=== PATIENT | male | born 1960 ===

== ENCOUNTER 2018-11-09 00:51 | Inpatient (IN) | payer SELFPAY ==
[~2018-11-09 00:51] MED LIST: ASPIRIN ONE; HEPARIN 10,000 UNITS/10 ML ONE; HEPARIN/NS 5000 UNIT/500ML(CATH LAB) IR ONE; LOPRESSOR IV ONE; PLAVIX ONE
[2018-11-09] MEDS ORDERED: SOLU-Medrol IV ONE (01:02)
[2018-11-09] MEDS ORDERED: DUONEB *Not for PRN Use IH ONE (01:02)
--- NOTE | 2018-11-09 01:04 | Emergency Department Report ---
HPI - General Time Seen by Provider: 11/09/18 01:01 - [facility] HPI: 58-year-old male presents to the emergency department via EMS from home with complaint of some acute shortness of breath that started about 30 minutes prior to arrival. Originally the call was for some throat pain and the shortness of breath but he started developing some wheezing, crackles and coughing fits and round. He is a tobacco smoker and has had about 2 cigarettes today. He has a history of diabetes. No recent travel or sick contacts at home. He did not take anything for her symptoms prior to arrival nor receive anything in route with EMS. He denies any fever, lower extremity edema, chest pain, nausea, vomiting or diaphoresis. ED Review of Systems ROS: Stated complaint: ASHISH Other details as noted in HPI Comment: All other systems reviewed and negative Constitutional: denies: chills, fever Eyes: denies: eye pain, vision change ENT: denies: ear pain, throat pain Respiratory: cough, shortness of breath, wheezing Cardiovascular: denies: chest pain, edema Gastrointestinal: denies: abdominal pain, vomiting Genitourinary: denies: dysuria, frequency Musculoskeletal: denies: back pain, arthralgia Skin: denies: rash, lesions Neurological: denies: headache, weakness Physical Exam - Physical Exam Physical Exam: GENERAL: Patient is ill-appearing. HEENT: Normocephalic. Atraumatic. Patient has moist mucous membranes. EYES: Extraocular motions are intact. Pupils are equal and reactive to light bilaterally. NECK: Supple. Trachea is midline. CHEST/LUNGS: Diffuse rales. Tachypnea with accessory muscle use and conversational dyspnea. There is respiratory distress noted. HEART/CARDIOVASCULAR: Regular. There is moderate tachycardia. There is no obvious murmur. ABDOMEN: Abdomen is soft, nontender. Patient has normal bowel sounds. There is no abdominal distention. SKIN: Skin is warm and dry. NEURO: The patient is awake, alert, and oriented. The patient is cooperative. The patient has no focal neurologic deficits. The patient has normal speech. MUSCULOSKELETAL: There is no tenderness or deformity. There is no evidence of acute injury. ED Course - Consultations Consultation #1: As soon as the EKG was completed, a code STEMI was called and Dr. Yousif was contacted as the interventional radiologist on-call. He listened to the case presentation, was able to review the EKG, and agrees with the assessment and will proceed with a cardiac catheterization. 11/09/18 04:19 ED Medical Decision Making - Lab Data Result diagrams: 11/09/18 01:24 11/09/18 01:24 - EKG Data -: EKG Interpreted by Me EKG shows normal: sinus rhythm, axis, intervals, QRS complexes, ST-T waves (ST elevations to the inferior leads, ST depression to 1 and aVL) Rate: tachycardia (125 bpm) - EKG Data When compared to previous EKG there are: previous EKG unavailable Interpretation: acute [place], other (sinus tachycardia. Inferior ST elevation [place]) - Radiology Data Radiology results: image reviewed interpreted by me: Chest x-ray shows diffuse pulmonary edema. No pneumothorax or obvious pneumonia. - Medical Decision Making Patient presents to the emergency department with acute shortness of breath and some pain in the throat where he felt like there was something lodged and he could not clear it. Patient appeared to be in some respiratory distress with audible rales. He was placed on a BiPAP with some improvement. At first it was difficult to get an appropriate EKG but there were some signs of inferior ST elevation. Eventually we're able to get an appropriate EKG that did confirm ST elevation in the inferior leads with some lateral depressions concerning for an inferior ST elevation [place]. A code STEMI was called and the patient went to the label paster. He was given aspirin, Plavix and heparin. Chest x-ray appears consistent with pulmonary edema. The patient will be admitted to the CCU and w as accepted for admission by the hospitalist, Dr. Morgan. - Differential Diagnosis [place], CHF, PE, pneumonia Critical Care Time: Yes Critical care time in (mins) excluding proc time.: 35 Critical care attestation.: If time is entered above; I have spent that time in minutes in the direct care of this critically ill patient, excluding procedure time. Critical care time was spent on this patient during his initial evaluation, ordering and interpretation of labs and imaging, discussion with the airplane coverer, ordering of appropriate medications. Critical Care Time: 35 minutes ED Disposition Clinical Impression: Acute ST elevation myocardial infarction (STEMI) of inferior wall, Acute pulmonary edema, Accelerated hypertension Disposition: OP ADMIT IP TO THIS HOSP Is pt being admited?: Yes Condition: Serious Time of Disposition: 04:24
[2018-11-09] MEDS ORDERED: ATIVAN ONE ×2 (01:15→01:16)
[2018-11-09] MEDS ORDERED: LOPRESSOR IV ONE (01:22)
[2018-11-09] MEDS ORDERED: PLAVIX PO ONE (01:23)
[2018-11-09] MEDS ORDERED: BABY ASPIRIN PO ONE (01:24)
[2018-11-09] MEDS ORDERED: HEPARIN IV ONE (01:24)
[2018-11-09] MEDS ORDERED: NACL 0.9% 1000 ML 1,000 ML IV ONE (01:24)
[2018-11-09] MEDS ORDERED: MORPHINE ONE (01:30)
[2018-11-09] MEDS: HEPARIN/ 0.45% NACL-25,000 UNIT/500 ML 25,000 UNIT/500 ML BAG IV SCH ×2 (01:39→02:45)
[2018-11-09 01:43] LABS: Hematocrit 50.8 % (35.5-45.6); Hemoglobin 16.9 gm/dl (11.8-15.2); Mean Corpuscular HGB Conc 33 % (32-34); Mean Corpuscular Volume 85 fl (84-94); Platelet Count 341 K/mm3 (140-440); Red Blood Count 6.01 M/mm3 (3.65-5.03); Red Cell Distribution Width 14.2 % (13.2-15.2)
--- NOTE | 2018-11-09 01:57 | XRay Report ---
PROCEDURE: XR CHEST 1V AP TECHNIQUE: A portable supine view the chest was obtained. HISTORY: Dyspnea COMPARISONS: None FINDINGS: The lungs are hyperinflated with diffuse reticulonodular densities throughout both lungs. Underlying congestion cannot be excluded. Pleural fluid is not seen. The heart size is normal. The skeletal stru ctures reveal generalized osteopenia with multiple well healed right-sided rib fractures. IMPRESSION: Hyperinflation with diffuse reticulonodular interstitial changes throughout both lungs which are of u ncertain etiology. Underlying congestion cannot be excluded. This document is electronically signed by Román Duke MD., November 09 2018 01:54:43 AM ET
[2018-11-09] MEDS ORDERED: HEPARIN 10,000 UNITS/10 ML IV ONE (02:00)
[2018-11-09 02:01] LABS: Alanine Aminotransferase 12 units/L (7-56); BUN/Creatinine Ratio 15; Blood Urea Nitrogen 12 mg/dL (9-20); Calcium 8.6 mg/dL (8.4-10.2); Hemolysis Index 16
[2018-11-09] MEDS ORDERED: HEPARIN/NS 5000 UNIT/500ML(CATH LAB) 1,000 ML IR ONE ×2 (02:05→02:20)
[2018-11-09] MEDS ORDERED: HEPARIN 10,000 UNITS/10 ML ONE (02:06)
[2018-11-09] MEDS ORDERED: SUBLIMAZE ONE (02:06)
[2018-11-09] MEDS ORDERED: VERSED ONE (02:06)
[2018-11-09 02:10] LABS: INR 0.89 (0.87-1.13)
[2018-11-09 02:11] LABS: Partial Thromboplastin Time 23.7 Sec. (24.2-36.6)
[2018-11-09] MEDS ORDERED: XYLOCAINE 2% INFILTRATI ONE (02:11)
[2018-11-09] MEDS ORDERED: NACL 0.9% 500 ML 500 ML ONE (02:11)
[2018-11-09] MEDS ORDERED: NITROGLYCERIN SYRINGE 3 ML ONE (02:17)
[2018-11-09] MEDS ORDERED: NACL 0.9% 1000 ML 1,000 ML ONE (02:43)
--- NOTE | 2018-11-09 03:18 | Consultation ---
History of Present Illness Consult date: 11/09/18 Consult reason: chest pain, shortness of breath History of present illness: The patient is a 58-year-old man who presented to the hospital with chest pain and shortness of breath. EKG showed an acute inferior ST elevation myocardial infarction which prompted emergency cardiac catheterization protocol. We found severe diffuse three-vessel disease. The LAD contained a long stent in its proximal to mid segment, with a greater than 90% in-stent restenosis. The circumflex was a dominant vessel, which also contained a stent in its midsegment, with an operative 70% in-stent restenosis. The infarct lesion was complete occlusion of the distal circumflex leading to a small diffusely diseased left posterior descending branch. The right coronary artery was a nondominant vessel but was also chronically occluded at its ostium. Left ventricular angiography showed a left ventricular ejection fraction less than 15%, with aneurysmal dilatation and akinesis of the inferior wall. Based on the patient's anatomy and the severity of the left ventricular dysfunction, he is determined to have only minimal benefit from primary intervention to the distal circumflex at extremely high risk. Recommended intra-aortic balloon pump support, as a bridge to eventual multivessel revascularization either surgical or percutaneous with surgical backup. In addition, the patient's chest x-ray shows acute pulmonary edema. He'll be ad mitted to the CCU, for aggressive management of heart failure and coronary artery disease pending revascularization. Medium to fdc prognosis is very poor. Past History Past Medical History: CAD, heart failure Medications and Allergies Allergies Allergy/AdvReac Type Severity Reaction Status Date / Time No Known Allergies Allergy Unverified 11/09/18 00:59 Active Meds: Active Medications Aspirin (Halfprin Ec) 81 mg PO QDAY MARIO Atorvastatin Calcium (Lipitor) 40 mg PO QHS MARIO Furosemide (Lasix) 40 mg IV 0600,1800 MARIO Sodium Chloride (Nacl 0.9% 1000 Ml) 1,000 mls @ 42 mls/hr IV ONCE ONE Stop: 11/10/18 01:12 Heparin Sodium/Sodium Chloride (Heparin/ 0.45% Nacl-25,000 Unit/500 Ml) 25,000 unit in 500 mls @ 20 mls/hr IV TITRATE MARIO; Protocol Last Admin: 11/09/18 02:45 Dose: 15 units/kg/hr, 19.786 mls/hr Documented by: Milrinone Lactate/Dextrose (Milrinone-D5w 20 Mg/100 Ml) 20 mg in 100 mls @ 4.946 mls/hr IV TITR MARIO Stop: 11/12/18 03:59 Lisinopril (Zestril) 2.5 mg PO QDAY [facility] Metoprolol Tartrate (Lopressor) 25 mg PO Q8H [facility] Nitroglycerin (Nitro-Bid 2%) 0.5 inch TP QIDNTG [facility]; Protocol Pantoprazole Sodium (Protonix) 40 mg PO QDAY [facility] Potassium Chloride (K-Dur) 40 meq PO ONCE ONE Stop: 11/09/18 03:08 Spironolactone (Aldactone) 25 mg PO QDAY [facility] Review of Systems Cardiovascular: chest pain, orthopnea, shortness of breath, no palpitations, no rapid/irregular heart beat, no edema, no syncope, no lightheadedness Physical Examination Vital Signs Temp Pulse Resp BP Pulse Ox 97.6 F 134 H 26 H 195/111 99 11/09/18 01:00 11/09/18 01:00 11/09/18 01:00 11/09/18 01:00 11/09/18 01:00 General appearance: severe distress (on BiPAP) HEENT: Positive: PERRL Neck: Positive: neck supple Cardiac: Positive: Reg Rate and Rhythm Lungs: Positive: Decreased Breath Sounds, Rales Neuro: Positive: Grossly Intact Abdomen: Positive: Soft Male genitourinary: Positive: deferred Skin: Positive: Clear Extremities: Absent: edema Results 11/09/18 01:24 11/09/18 01:24 Cardiac Enzymes 11/09/18 Range/Units 01:24 AST 21 (5-40) units/L Coagulation 11/09/18 Range/Units 01:24 PT 12.6 (12.2-14.9) Sec. INR 0.89 (0.87-1.13) APTT 23.7 L (24.2-36.6) Sec. CBC 11/09/18 Range/Units 01:24 WBC 21.9 H (4.5-11.0) K/mm3 RBC 6.01 H (3.65-5.03) M/mm3 Hgb 16.9 H (11.8-15.2) gm/dl Hct 50.8 H (35.5-45.6) % Plt Count 341 (140-440) K/mm3 Lymph # Electric Truck Crane Operator Comprehensive Metabolic Panel 11/09/18 Range/Units 01:24 Sodium 140 (137-145) mmol/L Potassium 3.0 L (3.6-5.0) mmol/L Chloride 101.1 (98-107) mmol/L Carbon Dioxide 22 (22-30) mmol/L BUN 12 (9-20) mg/dL Creatinine 0.8 (0.8-1.5) mg/dL Glucose 255 H (75-100) mg/dL Calcium 8.6 (8.4-10.2) mg/dL AST 21 (5-40) units/L ALT 12 (7-56) units/L Alkaline Phosphatase 94 (35-129) units/L Total Protein 7.1 (6.3-8.2) g/dL Albumin 4.0 (3.9-5) g/dL EKG interpretations - Telemetry EKG Rhythm: Sinus Rhythm (with acute inferior wall ST elevation myocardial infarction.) Assessment and Plan - Patient Problems (1) Acute ST elevation myocardial infarction (STEMI) of inferior wall Current Visit: Yes Status: Acute Plan to address problem: The infarct lesion was complete occlusion of the distal circumflex leading to a small diffusely diseased left posterior descending branch. The right coronary artery was a nondominant vessel but was also chronically occluded at its ostium. Left ventricular angiography showed a left ventricular ejection fraction less than 15%, with aneurysmal dilatation and akinesis of the inferior wall. Based on the patient's anatomy and the severity of the left ventricular dysfunction, he is determined to have only minimal benefit from primary intervention to the distal circumflex at extremely high risk. Recommended intra-aortic balloon pump support, as a bridge to eventual multivessel revascularization either surgical or percutaneous with surgical backup. (2) Acute pulmonary edema Current Visit: Yes Status: Acute Plan to address problem: Aggressive management of heart failure as outlined.
[2018-11-09 03:54] LABS: Basophils % (Manual) 0 % (0.0-1.8); Total Cells Counted 100
[2018-11-09 03:55] LABS: Platelet Estimate Consistent w Auto; RBC Morphology Normal
[2018-11-09] MEDS ORDERED: LOPRESSOR PO SCH (04:00)
[2018-11-09] MEDS ORDERED: K-DUR PO ONE (04:07)
--- NOTE | 2018-11-09 04:34 | Cardiac Catherization Report ---
CARDIAC CATHETERIZATION REPORT REASON FOR PROCEDURE: The patient is a 58-year-old man, who presented to the hospital with chest pain and ECG consistent with acute inferior wall ST elevation myocardial infarction. Emergency cardiac catheterization protocol was activated, we were asked to perform an emergency left heart catheterization. PROCEDURE: The patient was prepped and draped in a sterile fashion under emergency protocol. Right femoral artery was entered using Seldinger technique followed by placement of a 6-Norwegian sheath. Selective left and right coronary angiography was performed using #4 right and left Ines catheters. The pigtail catheter was used for left ventricular angiography. The angiograms were reviewed. CORONARY ANGIOGRAPHY: The left main coronary artery was free of significant disease. The left anterior descending artery contained a long stented segment through its proximal to mid segment. There was a focal, 90-95% in-stent restenosis of the mid LAD at the distal end of the stented segment. Following that, there was diffuse mild to moderate atherosclerosis of the LAD and its diagonal branches. The distal LAD contained a very tortuous segment that appeared to be associated with another, focal 75-80% de bruce stenosis. The circumflex artery was a dominant system. The circumflex also contained a long stented segment in its mid AV groove portion. Within the stented segment, there was an eccentric 60-70% stenosis. A medium-sized anterior obtuse marginal branch that originated within the stented segment to be chronically totally occluded at its ostium. The circumflex artery was then occluded in its distal AV groove segment before the left posterior descending branch. There was faint collateralization of the distal segments of the circumflex system, which appeared to be of small caliber, diffusely diseased. The right coronary artery was non-dominant, but was also completely occluded at its ostium. The left ventricle was moderately dilated. There was severe left ventricular systolic dysfunction, left ventricular ejection fraction less than 15-20%. There was aneurysmal dilatation and akinesis of the basal inferior wall. Intraaortic balloon counterpulsation: After review of the angiograms, the patient was determined as high risk for primary angioplasty targeted at the distal circumflex acute occlusion. The patient will more likely benefit from multivessel revascularization, either done via surgical revascularization or multivessel percutaneous vascularization under surgical backup. Intraaortic balloon pump: An intraaortic balloon pump was inserted and a 1:1 counterpulsation was successfully established, as a bridge to eventual surgical revascularization. CONCLUSION: 1. Acute inferior ST elevation myocardial infarction. 2. Severe multivessel coronary artery disease. 3. Severe ischemic cardiomyopathy, ejection fraction less than 15%. 4. Successful placement of an intraaortic balloon pump. Coronary intervention to the distal circumflex infarct lesion is deferred, due to the patient's severe multivessel disease, high risk for coronary intervention, and eventual need for multivessel revascularization. JOB# [id number] CA/NTS
[2018-11-09 05:27] LABS: Hematocrit 48.1 % (35.5-45.6); Hemoglobin 16.2 gm/dl (11.8-15.2)
[2018-11-09 05:38] LABS: INR 0.99 (0.87-1.13)
[2018-11-09 05:44] LABS: Partial Thromboplastin Time 78.7 Sec. (24.2-36.6)
[2018-11-09] MEDS ORDERED: SODIUM CHLORIDE FLUSH SYRINGE 10 ML IV PRN (05:53)
[2018-11-09] MEDS ORDERED: TYLENOL PO PRN (05:53)
[2018-11-09] MEDS ORDERED: D50W (25GM) Syringe IV PRN (05:53)
[2018-11-09] MEDS ORDERED: ZOFRAN IV PRN (05:53)
--- NOTE | 2018-11-09 05:56 | History and Physical Report ---
History of Present Illness Date of examination: 11/09/18 Date of admission: 11/09/18 03:31 History of present illness: 58 year old man with a history of hypertension, diabetes, coronary artery disease comes emergency room with complaints of shortness of breath. In the emergency room he had STEMI, taken emergently to lift slab operator, which shows multivessel disease, patient is on a balloon pump Review of systems Constitutional: no weight loss, chills, fever Ears, eyes, nose, mouth and throat: no nasal congestion, no nasal discharge, no sinus pressure, no vision change, no red eye. Neck: No neck pain or rigidity. Cardiovascular: no palpitations, chest pain Respiratory: cough, +shortness of breath Gastrointestinal: no hematochezia, abdominal pain Genitourinary : no frequency , no hematuria Musculoskeletal: no joint swelling or muscle ache Integumentary: no rash, no pruritis Neurological: no parathesias, no focal weakness Endocrine: no cold or heat intolerance, no polyuria or polydipsia Hematologic/Lymphatic: no easy bruising, no easy bleeding, no gland swelling Allergic/Immunologic: no urticaria, no angioedema. PAST MEDICAL HISTORY: hypertension, diabetes, coronary artery disease PAST SURGICAL HISTORY: CABG SOCIAL HISTORY: Denies alcohol, smoked 2 cigarettes a day,no drugs FAMILY HISTORY: Hypertension Past History Past Medical History: CAD, heart failure Medications and Allergies Allergies Allergy/AdvReac Type Severity Reaction Status Date / Time No Known Allergies Allergy Unverified 11/09/18 00:59 Home Medications Medication Instructions Recorded Confirmed Last Taken Type Aspirin EC [Aspirin Enteric Coated 81 mg PO QDAY #30 tablet 11/09/18 Unknown Rx TAB] AtorvaSTATin [Lipitor] 40 mg PO QHS tablet 11/09/18 Unknown Rx Lisinopril [Zestril TAB] 2.5 mg PO QDAY tablet 11/09/18 Unknown Rx Metoprolol [Lopressor TAB] 25 mg PO Q8HR tablet 11/09/18 Unknown Rx Nitroglycerin [Nitro-Bid] 30 gm TD Q6H 7 Days oint...g. 11/09/18 Unknown Rx Pantoprazole [Protonix TAB] 40 mg PO QDAY #30 tablet 11/09/18 Unknown Rx Spironolactone [Aldactone] 25 mg PO QDAY #30 tablet 11/09/18 Unknown Rx Active Meds: Active Medications Acetaminophen (Tylenol) 650 mg PO Q4H PRN PRN Reason: Pain MILD(1-3)/Fever >100.5/VENEGAS Aspirin (Halfprin Ec) 81 mg PO QDAY [facility]IO Atorvastatin Calcium (Lipitor) 40 mg PO QHS [facility] Dextrose (D50w (25gm) Syringe) 50 ml IV PRN PRN PRN Reason: Hypoglycemia Furosemide (Lasix) 40 mg IV 0600,1800 [facility] Sodium Chloride (Nacl 0.9% 1000 Ml) 1,000 mls @ 42 mls/hr IV ONCE ONE Stop: 11/10/18 01:12 Heparin Sodium/Sodium Chloride (Heparin/ 0.45% Nacl-25,000 Unit/500 Ml) 25,000 unit in 500 mls @ 20 mls/hr IV TITRATE MARIO; Protocol Last Admin: 11/09/18 02:45 Dose: 15 units/kg/hr, 19.786 mls/hr Documented by: Milrinone Lactate/Dextrose (Milrinone-D5w 20 Mg/100 Ml) 20 mg in 100 mls @ 4.946 mls/hr IV TITR MARIO Stop: 11/12/18 03:59 Piperacillin Sod/Tazobactam Sod (Zosyn/Ns 3.375gm/50ml) 3.375 gm in 50 mls @ 100 mls/hr IV Q8HR [facility] Vancomycin HCl (Vancomycin/Ns 1 Gm/250 Ml) 1 gm in 250 mls @ 167.007 mls/hr IV ONCE ONE; Protocol Stop: 11/09/18 07:21 Insulin Human Lispro (Humalog) 0 unit SUB-Q ACHS [facility]; Protocol Lisinopril (Zestril) 2.5 mg PO QDAY [facility] Metoprolol Tartrate (Lopressor) 25 mg PO Q8HR [facility] Nitroglycerin (Nitro-Bid 2%) 0.5 inch TP QIDNTG [facility]; Protocol Ondansetron HCl (Zofran) 4 mg IV Q8H PRN PRN Reason: Nausea And Vomiting Pantoprazole Sodium (Protonix) 40 mg PO QDAY [facility] Sodium Chloride (Sodium Chloride Flush Syringe 10 Ml) 10 ml IV BID [facility] Sodium Chloride (Sodium Chloride Flush Syringe 10 Ml) 10 ml IV PRN PRN PRN Reason: LINE FLUSH Spironolactone (Aldactone) 25 mg PO QDAY [facility] Exam - Physical Exam Narrative exam: Gen. appearance: Patient lying in bed, no apparent distress HEENT: Normocephalic, atraumatic, pupils equally round and reactive to light, extraocular movement intact, and no sclericterus,. No JVD or thyromegaly or nodule,neck supple, no carotid bruit ,mucous membranes moist, no exudate or erythema Heart: S1, S2, regular rate and rhythm Lungs: Clear bilaterally, breathing comfortable Abdomen: Positive bowel sounds, non-tender, nondistended, no organomegaly Extremity:no edema cyanosis, clubbing Skin: no rash, dry, warm Neuro: Oriented 3, cranial nerves II-12 intact, speech is fluent, motor and sensory intact - Constitutional Vitals: Temp Pulse Resp BP Pulse Ox 97.4 F L 75 15 155/73 100 11/09/18 04:26 11/09/18 05:00 11/09/18 05:00 11/09/18 05:00 11/09/18 05:00 Results - Labs CBC & Chem 7: 11/09/18 05:18 11/09/18 01:24 Labs: Abnormal lab results 11/09/18 11/09/18 11/09/18 Range/Units 01:24 01:24 01:24 WBC 21.9 H (4.5-11.0) K/mm3 RBC 6.01 H (3.65-5.03) M/mm3 Hgb 16.9 H (11.8-15.2) gm/dl Hct 50.8 H (35.5-45.6) % Monocytes % (Manual) 10.0 H (0.0-7.3) % Seg Neutrophils # Man 12.7 H (1.8-7.7) K/mm3 Lymphocytes # (Manual) 6.8 H (1.2-5.4) K/mm3 Monocytes # (Manual) 2.2 H (0.0-0.8) K/mm3 APTT 23.7 L (24.2-36.6) Sec. D-Dimer 724.81 H (0-234) ng/mlDDU POC ABG pH (7.35-7.45) Potassium 3.0 L (3.6-5.0) mmol/L Glucose 255 H (75-100) mg/dL 11/09/18 11/09/18 11/09/18 Range/Units 04:25 05:18 05:18 WBC (4.5-11.0) K/mm3 RBC (3.65-5.03) M/mm3 Hgb 16.2 H (11.8-15.2) gm/dl Hct 48.1 H (35.5-45.6) % Monocytes % (Manual) (0.0-7.3) % Seg Neutrophils # Man (1.8-7.7) K/mm3 Lymphocytes # (Manual) (1.2-5.4) K/mm3 Monocytes # (Manual) (0.0-0.8) K/mm3 APTT 78.7 H* (24.2-36.6) Sec. D-Dimer (0-234) ng/mlDDU POC ABG pH 7.294 L (7.35-7.45) Potassium (3.6-5.0) mmol/L Glucose (75-100) mg/dL - Imaging and Cardiology EKG: image reviewed Chest x-ray: report reviewed Assessment and Plan Assessment SIRS Diabetes STEMI CAD Plan Admit to medicine Start IV Zosyn, vancomycin, follow blood cultures,UA Check fingersticks initially insulin sliding scale STEMI per cardiology Consult critical care, patient on heparin drip, DVT prophylaxis
[2018-11-09] MEDS ORDERED: ZOSYN/NS 3.375GM/50ML 3.375 GM/50 ML BAG IV SCH (06:00)
[2018-11-09] MEDS ORDERED: LASIX IV SCH (06:00)
[2018-11-09] MEDS: NITRO-BID 2% TP SCH ×2 (06:27→10:40)
[2018-11-09] MEDS ORDERED: ATIVAN IV ONE (06:29)
[2018-11-09] MEDS: MILRINONE-D5W 20 MG/100 ML 20 MG/100 ML BAG IV SCH ×2 (06:33→10:32)
[2018-11-09] MEDS ORDERED: HumaLOG SUB-Q SCH (07:30)
[2018-11-09 07:58] LABS: Creatine Kinase MB 93.5 ng/mL (0.0-4.0)
[2018-11-09] MEDS ORDERED: VANCOMYCIN/NS 1 GM/250 ML 1 GM/250 ML BAG IV ONE (08:00)
--- NOTE | 2018-11-09 08:54 | Discharge Summary ---
Providers - Providers Date of Admission: 11/09/18 03:31 Date of discharge: 11/09/18 Attending physician: DARRYN SILVER 11/09/18 03:06 Consult to Cardiac Rehabilitation [CONS] Routine Reason For Exam: Cardiac Rehab Evaluation 11/09/18 05:53 Consult to Physician [CONS] Routine Comment: Consulting Provider: WILLIAM BOO Physician Instructions: Reason For Exam: cc 11/09/18 08:43 Consult to Physician [CONS] Routine Comment: done Consulting Provider: CHETAN WINN Physician Instructions: Reason For Exam: STEMI [facility] Condition: Fair Hospital course: Patient is 58 year old with hypertension, diabetes, coronary artery disease. he presented to ED with complaints of shortness of breath. In the emergency Department he was diagnosed with STEMI, taken emergently to general laborer. Left ventricular angiography showed a left ventricular ejection fraction less than 15%, with aneurysmal dilatation and akinesis of the inferior wall. Based on the patient's anatomy and the severity of the left ventricular dysfunction, he is determined to have only minimal benefit from primary intervention to the distal circumflex at extremely high risk. Recommended intra-aortic balloon pump support, as a bridge to eventual multivessel revascularization either surgical or percutaneous with surgical backup. Intra-aortic pump placed by cardiology and he was admitted to ICU. Surgery recommended transfer to [facility]. Arrangements are made and patient was transferred to [place] on 11/09/18. Disposition: DC/- [facility] IP - Discharge Diagnoses (1) Hypertensive emergency Status: Acute (2) Acute ST elevation myocardial infarction (STEMI) of inferior wall Status: Acute (3) HTN (hypertension) Status: Acute (4) Diabetes mellitus Status: Acute (5) CAD (coronary artery disease) Status: Acute Core Measure Documentation - Palliative Care Palliative Care/ Comfort Measures: Not Applicable - Core Measures Any of the following diagnoses?: acute CO - Acute CO Discharge Requirements Aspirin at discharge: Yes CHERYL/ARB for LVSD if EF <40%: Yes Beta angela at discharge: Yes Statin for LDL = or >100 mg/dl on DC: Yes Exam - Constitutional Vitals: Temp Pulse Resp BP Pulse Ox 98.3 F 77 13 154/89 99 11/09/18 08:00 11/09/18 07:00 11/09/18 07:00 11/09/18 07:00 11/09/18 08:25 Plan Follow up with: TONY MANDUJANO MD [Primary Care Provider] - 7 Days Prescriptions: Spironolactone [Aldactone] 25 mg PO QDAY #30 tablet Aspirin EC [Aspirin Enteric Coated TAB] 81 mg PO QDAY #30 tablet Nitroglycerin [Nitro-Bid] 30 gm TD Q6H 7 Days oint...g. Pantoprazole [Protonix TAB] 40 mg PO QDAY #30 tablet
--- NOTE | 2018-11-09 09:21 | Consultation ---
History of Present Illness - Reason for Consult Consult date: 11/09/18 Acute ND Requesting physician: CHETAN WINN - History of Present Illness 58 y/o male admitted with acute ND. Had LHC done yesterday with severe 3 vessel disease with severely depressed EF of 15%. Patient also found to have pulmonary edema on CXR. Patient Awake and alert. On Balloon pump. No family at bedside. Past History Past Medical History: CAD, heart failure Medications and Allergies Allergies Allergy/AdvReac Type Severity Reaction Status Date / Time No Known Allergies Allergy Unverified 11/09/18 00:59 Home Medications Medication Instructions Recorded Confirmed Last Taken Type Aspirin EC [Aspirin Enteric Coated 81 mg PO QDAY #30 tablet 11/09/18 Unknown Rx TAB] AtorvaSTATin [Lipitor] 40 mg PO QHS tablet 11/09/18 Unknown Rx Lisinopril [Zestril TAB] 2.5 mg PO QDAY tablet 11/09/18 Unknown Rx Metoprolol [Lopressor TAB] 25 mg PO Q8HR tablet 11/09/18 Unknown Rx Nitroglycerin [Nitro-Bid] 30 gm TD Q6H 7 Days oint...g. 11/09/18 Unknown Rx Pantoprazole [Protonix TAB] 40 mg PO QDAY #30 tablet 11/09/18 Unknown Rx Spironolactone [Aldactone] 25 mg PO QDAY #30 tablet 11/09/18 Unknown Rx Active Meds: Active Medications Acetaminophen (Tylenol) 650 mg PO Q4H PRN PRN Reason: Pain MILD(1-3)/Fever >100.5/VENEGAS Aspirin (Halfprin Ec) 81 mg PO QDAY MARIO Atorvastatin Calcium (Lipitor) 40 mg PO QHS MARIO Dextrose (D50w (25gm) Syringe) 50 ml IV PRN PRN PRN Reason: Hypoglycemia Furosemide (Lasix) 40 mg IV 0600,1800 [facility] Last Admin: 11/09/18 06:42 Dose: 40 mg Documented by: Sodium Chloride (Nacl 0.9% 1000 Ml) 1,000 mls @ 42 mls/hr IV ONCE ONE Stop: 11/10/18 01:12 Last Admin: 11/09/18 06:55 Dose: 42 mls/hr Documented by: Heparin Sodium/Sodium Chloride (Heparin/ 0.45% Nacl-25,000 Unit/500 Ml) 25,000 unit in 500 mls @ 20 mls/hr IV TITRATE MARIO; Protocol Last Admin: 11/09/18 02:45 Dose: 15 units/kg/hr, 19.786 mls/hr Documented by: Milrinone Lactate/Dextrose (Milrinone-D5w 20 Mg/100 Ml) 20 mg in 100 mls @ 4.946 mls/hr IV TITR MARIO Stop: 11/12/18 03:59 Last Admin: 11/09/18 06:33 Dose: 0.25 mcg/kg/min, 4.946 mls/hr Documented by: Piperacillin Sod/Tazobactam Sod (Zosyn/Ns 3.375gm/50ml) 3.375 gm in 50 mls @ 100 mls/hr IV Q8HR [facility] Last Admin: 11/09/18 06:30 Dose: 100 mls/hr Documented by: Vancomycin HCl (Vancomycin/Ns 1 Gm/250 Ml) 1 gm in 250 mls @ 167.007 mls/hr IV ONCE ONE; Protocol Stop: 11/09/18 09:29 Last Admin: 11/09/18 09:05 Dose: 167.007 mls/hr Documented by: Insulin Human Lispro (Humalog) 0 unit SUB-Q ACHS [facility]; Protocol Lisinopril (Zestril) 2.5 mg PO QDAY [facility] Metoprolol Tartrate (Lopressor) 25 mg PO Q8HR [facility] Nitroglycerin (Nitro-Bid 2%) 0.5 inch TP QIDNTG [facility]; Protocol Last Admin: 11/09/18 06:27 Dose: 0.5 inch Documented by: Ondansetron HCl (Zofran) 4 mg IV Q8H PRN PRN Reason: Nausea And Vomiting Pantoprazole Sodium (Protonix) 40 mg PO QDAY [facility] Sodium Chloride (Sodium Chloride Flush Syringe 10 Ml) 10 ml IV BID MARIO Sodium Chloride (Sodium Chloride Flush Syringe 10 Ml) 10 ml IV PRN PRN PRN Reason: LINE FLUSH Spironolactone (Aldactone) 25 mg PO QDAY [facility] Review of Systems All systems: negative Exam - Constitutional Vitals: Temp Pulse Resp BP Pulse Ox 98.3 F 77 13 154/89 99 11/09/18 08:00 11/09/18 07:00 11/09/18 07:00 11/09/18 07:00 11/09/18 08:25 General appearance: Present: no acute distress, well-nourished - EENT Eyes: Present: PERRL, EOM intact ENT: hearing intact, clear oral mucosa, poor dentition - Neck Neck: Present: supple, normal ROM - Respiratory Respiratory effort: normal Respiratory: bilateral: rales - Cardiovascular Rhythm: regular Heart Sounds: Present: S1 & S2 - Extremities Extremities: no ischemia Results - Labs CBC & Chem 7: 11/09/18 05:18 11/09/18 01:24 Labs: Abnormal lab results 11/09/18 11/09/18 11/09/18 Range/Units 01:24 01:24 01:24 WBC 21.9 H (4.5-11.0) K/mm3 RBC 6.01 H (3.65-5.03) M/mm3 Hgb 16.9 H (11.8-15.2) gm/dl Hct 50.8 H (35.5-45.6) % Monocytes % (Manual) 10.0 H (0.0-7.3) % Seg Neutrophils # Man 12.7 H (1.8-7.7) K/mm3 Lymphocytes # (Manual) 6.8 H (1.2-5.4) K/mm3 Monocytes # (Manual) 2.2 H (0.0-0.8) K/mm3 APTT 23.7 L (24.2-36.6) Sec. D-Dimer 724.81 H (0-234) ng/mlDDU Heparin Anti-Xa Level (0.3-0.7) U.I./ml POC ABG pH (7.35-7.45) Potassium 3.0 L (3.6-5.0) mmol/L Glucose 255 H (75-100) mg/dL Total Creatine Kinase (55-170) units/L CK-MB (CK-2) (0.0-4.0) ng/mL CK-MB (CK-2) Rel Index (0-4) Troponin T (0.00-0.029) ng/mL Cholesterol (50-199) mg/dL LDL Cholesterol Direct (50-130) mg/dL 11/09/18 11/09/18 11/09/18 Range/Units 04:25 05:18 05:18 WBC (4.5-11.0) K/mm3 RBC (3.65-5.03) M/mm3 Hgb 16.2 H (11.8-15.2) gm/dl Hct 48.1 H (35.5-45.6) % Monocytes % (Manual) (0.0-7.3) % Seg Neutrophils # Man (1.8-7.7) K/mm3 Lymphocytes # (Manual) (1.2-5.4) K/mm3 Monocytes # (Manual) (0.0-0.8) K/mm3 APTT 78.7 H* (24.2-36.6) Sec. D-Dimer (0-234) ng/mlDDU Heparin Anti-Xa Level (0.3-0.7) U.I./ml POC ABG pH 7.294 L (7.35-7.45) Potassium (3.6-5.0) mmol/L Glucose (75-100) mg/dL Total Creatine Kinase (55-170) units/L CK-MB (CK-2) (0.0-4.0) ng/mL CK-MB (CK-2) Rel Index (0-4) Troponin T (0.00-0.029) ng/mL Cholesterol (50-199) mg/dL LDL Cholesterol Direct (50-130) mg/dL 11/09/18 11/09/18 Range/Units 05:18 06:58 WBC (4.5-11.0) K/mm3 RBC (3.65-5.03) M/mm3 Hgb (11.8-15.2) gm/dl Hct (35.5-45.6) % Monocytes % (Manual) (0.0-7.3) % Seg Neutrophils # Man (1.8-7.7) K/mm3 Lymphocytes # (Manual) (1.2-5.4) K/mm3 Monocytes # (Manual) (0.0-0.8) K/mm3 APTT (24.2-36.6) Sec. D-Dimer (0-234) ng/mlDDU Heparin Anti-Xa Level 0.88 H (0.3-0.7) U.I./ml POC ABG pH (7.35-7.45) Potassium (3.6-5.0) mmol/L Glucose (75-100) mg/dL Total Creatine Kinase 571 H (55-170) units/L CK-MB (CK-2) 93.5 H (0.0-4.0) ng/mL CK-MB (CK-2) Rel Index 16.3 H (0-4) Troponin T 0.518 H* D (0.00-0.029) ng/mL Cholesterol 255 H (50-199) mg/dL LDL Cholesterol Direct 219 H (50-130) mg/dL - Imaging and Cardiology Chest x-ray: image reviewed (Pulmonary edema) Assessment and Plan 58 y/o male with acute ND now on balloon pump with severely depressed EF requiring transfer. 1. Transfer to [place], I'm assuming for likely bypass surgery 2. Aggressive replacement of potassium. Will only do IV for now given NPO status. 3. Continue IABP CCT 31 minutes.
[2018-11-09] MEDS ORDERED: PROTONIX PO SCH (10:00)
[2018-11-09] MEDS ORDERED: ALDACTONE PO SCH (10:00)
[2018-11-09] MEDS ORDERED: SODIUM CHLORIDE FLUSH SYRINGE 10 ML IV SCH (10:00)
[2018-11-09] MEDS ORDERED: HALFPRIN EC PO SCH (10:00)
[2018-11-09] MEDS ORDERED: ZESTRIL PO SCH (10:00)
[2018-11-09 10:58] VITALS: BP 108/67
== END 2018-11-09 10:30 | disposition short-term general hospital (02) | DRG 270 ==
LOC: ED 00:51 → CC1 03:31
PROVIDERS: ADMIT Internal Medicine; ATTEND Internal Medicine
PROC: 4A033R1 Measurement of Arterial Saturation, Peripheral, Percutaneous Approach (ICD-10-PCS; principal; 2018-11-09)
PROC: 5A02210 Assistance with Cardiac Output using Balloon Pump, Continuous (ICD-10-PCS; 2018-11-09)
PROC: 4A023N7 Measurement of Cardiac Sampling and Pressure, Left Heart, Percutaneous Approach (ICD-10-PCS; 2018-11-09)
PROC: B2111ZZ Fluoroscopy of Multiple Coronary Arteries using Low Osmolar Contrast (ICD-10-PCS; 2018-11-09)
PROC: B2151ZZ Fluoroscopy of Left Heart using Low Osmolar Contrast (ICD-10-PCS; 2018-11-09)
DX: T82.855A Stenosis of coronary artery stent, initial encounter (principal); I21.19 ST elevation (STEMI) myocardial infarction involving other coronary artery of inferior wall; J81.0 Acute pulmonary edema; R65.10 Systemic inflammatory response syndrome (SIRS) of non-infectious origin without acute organ dysfunction; E11.9 Type 2 diabetes mellitus without complications; F17.210 Nicotine dependence, cigarettes, uncomplicated; I10 Essential (primary) hypertension; Z82.49 Family history of ischemic heart disease and other diseases of the circulatory system; I25.10 Atherosclerotic heart disease of native coronary artery without angina pectoris; Z95.1 Presence of aortocoronary bypass graft; Y83.8 Other surgical procedures as the cause of abnormal reaction of the patient, or of later complication, without mention of misadventure at the time of the procedure; Y92.89 Other specified places as the place of occurrence of the external cause; I25.5 Ischemic cardiomyopathy
CPT/HCPCS: 33967; 36415; 36600; 71045; 80053; 80061; 82550; 82553; 82803; 82962; 83735; 83880; 84484; 85007; 85014; 85018; 85025; 85049; 85347; 85379; 85520; 85610; 85730; 86850; 86900; 86901; 87040; 93005; 93010; 93458; 94640; 94760; 96374; 96375; G0378; C1887; C1894; J1644; J1815; J1940; J2060; J2250; J2260; J2270; J2543; J2930; J3010; J3370; J7030; J7040; Q9967